=== PATIENT | female | born 1955 | race African-American/Black ===

== ENCOUNTER 2017-08-31 14:42 | Inpatient (IN) | payer MEDICAID, OTHER ==
[~2017-08-31] VITALS: Ht 162.6 cm; Wt 61.2 kg
[2017-08-31] MEDS ORDERED: MORPHINE SULFATE 4 MG/ML CPJ (NOT FOR IM USE) IV ONE (16:15)
[2017-08-31 16:37] LABS: BASOPHILS % 1.1 % (0.0-2.0); EOSINOPHILS % 4.3 % (0.0-5.0); HEMATOCRIT. 45.4 % (36.0-48.0); HEMOGLOBIN. 15.5 g/dL (12.0-16.0); LYMPHOCYTES % 34.3 % (20.0-50.0); MEAN CORPUSCULAR HEMOGLOBIN 30.6 pg (28.0-32.0); MEAN CORPUSCULAR VOLUME 89.7 fL (81.0-99.0); MEAN PLATELET VOLUME 7.2 fl (7.4-10.4); MONOCYTES % 12.3 % (2.0-8.0); PLATELET 336 x1000/uL (130-400); RED BLOOD CELL COUNT 5.06 mill/uL (4.2-5.4); RED CELL DISTRIBUTION WIDTH 13.5 % (11.6-14.6)
[2017-08-31 16:43] LABS: PROTHROMBIN TIME 10.7 sec (9.4-11.6)
[2017-08-31 16:47] LABS: CARBON DIOXIDE 27 mEq/L (21-32); CHLORIDE 103 mEq/L (98-107)
[2017-08-31 16:54] LABS: TROPONIN I < 0.02 ng/mL (0.00-0.04)
[2017-08-31] MEDS ORDERED: ASPIRIN 325MG EC TABLET PO ONE (17:15)
[2017-08-31] MEDS ORDERED: MELO-106 PO (20:07)
[2017-08-31] MEDS ORDERED: TRAM50TA3 PO (20:08)
[2017-08-31] MEDS ORDERED: AMOX500T2 PO (20:13)
[2017-08-31] MEDS ORDERED: NAPR500T PO (20:13)
[2017-08-31] MEDS ORDERED: HYDR12.529 PO (20:13)
[2017-08-31] MEDS ORDERED: TRAZ-129 PO (20:13)
[2017-08-31] MEDS ORDERED: SIMV20TA6 PO (20:13)
[2017-08-31] MEDS ORDERED: TIZA4TAB4 PO ×2 (20:13→21:50)
[2017-08-31] MEDS ORDERED: ONDANSETRON HCL 4MG/2ML VIAL IV PRN (20:15)
[2017-08-31] MEDS ORDERED: ACETAMINOPHEN 325MG TABLET PO PRN (20:15)
[2017-08-31] MEDS ORDERED: ACETAMINOPHEN 650MG SUPP PR PRN (20:15)
[2017-08-31] MEDS ORDERED: DIPHENHYDRAMINE 50MG/ML VIAL IV PRN (20:15)
[2017-08-31] MEDS ORDERED: ACETAMINOPHEN 650MG/20.3ML UDC GT PRN (20:15)
[2017-08-31] MEDS ORDERED: NA PHOS,M-B/NA PHOS,DI-BA ENEMA 118ML PR PRN (20:15)
[2017-08-31] MEDS ORDERED: DOCUSATE SODIUM 100MG CAPSULE PO PRN (20:15)
[2017-08-31] MEDS ORDERED: CLONIDINE 0.1MG TABLET PO PRN (20:15)
[2017-08-31] MEDS ORDERED: GUAIFENESIN 200MG/10ML SUGAR FREE UDC PO PRN (20:15)
[2017-08-31] MEDS ORDERED: MAGNESIUM/ALUMINUM HYDROXIDE/SIMETHICONE 30ML UDC PO PRN (20:15)
[2017-08-31 21:30] VITALS: BP 108/58
[2017-08-31 21:40] VITALS: BP 108/58
[2017-08-31] MEDS ORDERED: MOME13HF2 INH (21:50)
[2017-08-31] MEDS ORDERED: ALBU18HF2 IH (21:50)
[2017-08-31 23:19] LABS: CREATINE KINASE 86 IU/L (26-192); TROPONIN I < 0.02 ng/mL (0.00-0.04)
[2017-09-01] VITALS: BP 110/55
[2017-09-01] MEDS: HYDROCODONE/ACETAMINOPHEN 5/325MG TABLET PO PRN ×2 (03:35→20:05)
[2017-09-01 04:00] VITALS: BP 115/61
[2017-09-01 04:13] LABS: CLARITY URINE CLEAR (CLEAR); COLOR URINE YELLOW (YELLOW); GLUCOSE URINE TRACE (NEGATIVE); KETONES URINE NEGATIVE (NEGATIVE); LEUKOCYTE ESTERASE URINE NEGATIVE (NEGATIVE); NITRITE URINE NEGATIVE (NEGATIVE); OCCULT BLOOD URINE NEGATIVE (NEGATIVE); PROTEIN URINE NEGATIVE (NEGATIVE); SPECIFIC GRAVITY URINE 1.027 (1.005-1.030); UROBILINOGEN URINE 0.2 E.U./dL (0.2-1.0)
[2017-09-01 05:38] LABS: *AMPHETAMINES SCREEN URINE NEGATIVE (NEGATIVE); *BARBITURATES SCREEN URINE NEGATIVE (NEGATIVE); *BENZODIAZEPINES SCREEN URINE NEGATIVE (NEGATIVE); *COCAINE SCREEN URINE NEGATIVE (NEGATIVE); CANNABINOID URINE SCREEN NEGATIVE (NEGATIVE); METHADONE URINE SCREEN NEGATIVE (NEGATIVE); OPIATES URINE SCREEN NEGATIVE (NEGATIVE); PHENCYCLIDINE URINE SCREEN NEGATIVE (NEGATIVE)
[2017-09-01 06:21] LABS: HEMATOCRIT. 39.9 % (36.0-48.0); HEMOGLOBIN. 13.5 g/dL (12.0-16.0); MEAN CORPUSCULAR VOLUME 88.9 fL (81.0-99.0); MEAN PLATELET VOLUME 7.8 fl (7.4-10.4); PLATELET 310 x1000/uL (130-400); RED BLOOD CELL COUNT 4.49 mill/uL (4.2-5.4); RED CELL DISTRIBUTION WIDTH 13.1 % (11.6-14.6)
[2017-09-01 06:58] LABS: CARBON DIOXIDE 29 mEq/L (21-32); CHLORIDE 102 mEq/L (98-107); CREATINE KINASE 80 IU/L (26-192); HDL CHOLESTEROL 73 mg/dL (40-59); LDL CHOLESTEROL 91 mg/dL (5-100); TROPONIN I < 0.02 ng/mL (0.00-0.04)
[2017-09-01 08:00] VITALS: BP 121/65
[2017-09-01] MEDS: ASPIRIN 81MG TABLET PO SCH (10:36)
[2017-09-01 12:00] VITALS: BP 159/64
[2017-09-01 12:57] LABS: T4 FREE 0.8 ng/dL (0.76-1.46)
[2017-09-01 13:18] LABS: PLATELET ESTIMATE NORMAL
[2017-09-01] MEDS ORDERED: REGADENOSON 0.4 MG/5 ML IV NR (14:15)
[2017-09-01 15:26] LABS: CREATINE KINASE 94 IU/L (26-192); CREATINE KINASE MB FRACTION 0.8 ng/mL (0.5-3.6); TROPONIN I < 0.02 ng/mL (0.00-0.04)
[2017-09-01 16:05] VITALS: BP 123/69
[2017-09-01 20:00] VITALS: BP 126/66
[2017-09-01] MEDS: CARVEDILOL 3.125 MG TABLET PO SCH (20:04)
[2017-09-01] MEDS ORDERED: ZOLPIDEM TARTRATE 5MG TABLET PO PRN (20:45)
[2017-09-01] MEDS: IPRATROPIUM/ALBUTEROL 0.5-3(2.5)MG/3ML NEB HHN SCH (21:15)
[2017-09-01 23:49] LABS: CREATINE KINASE 81 IU/L (26-192); TROPONIN I < 0.02 ng/mL (0.00-0.04)
[2017-09-02] VITALS: BP 132/68
[2017-09-02] MEDS: IPRATROPIUM/ALBUTEROL 0.5-3(2.5)MG/3ML NEB HHN SCH ×3 (02:56→12:01)
[2017-09-02 04:00] VITALS: BP 130/63
[2017-09-02 07:45] LABS: CREATINE KINASE 77 IU/L (26-192); CREATINE KINASE MB FRACTION 0.9 ng/mL (0.5-3.6); TROPONIN I < 0.02 ng/mL (0.00-0.04)
[2017-09-02 08:00] VITALS: BP 141/66
[2017-09-02] MEDS: CARVEDILOL 3.125 MG TABLET PO SCH (09:00)
[2017-09-02] MEDS: ASPIRIN 81MG TABLET PO SCH (09:00)
[2017-09-02] MEDS ORDERED: REGADENOSON 0.4 MG/5 ML IV ONE (09:11)
[2017-09-02 13:11] VITALS: BP 128/67
== END 2017-09-02 13:50 | disposition home or self-care (01) | DRG 203 ==
LOC: ER 16:00 → ENRESERV 20:38 → EDBEDREQTM 20:57 → EDBEDREQ 20:57 → 5WST 21:02 → EDBEDREQTM 21:04 → UNDODISIN 09-02 13:50
PROVIDERS: ADMIT Family Medicine; ATTEND Family Medicine
DX: M94.0 Chondrocostal junction syndrome [Tietze] (principal); I10 Essential (primary) hypertension; E78.5 Hyperlipidemia, unspecified; E78.00 Pure hypercholesterolemia, unspecified; J45.909 Unspecified asthma, uncomplicated; Z88.8 Allergy status to other drugs, medicaments and biological substances
CPT/HCPCS: 36415; 71010; 78452; 80053; 80061; 80305; 81001; 82550; 82553; 83036; 83880; 84439; 84443; 84484; 85025; 85379; 85610; 93005; 93017; 93970; 94640; 94664; 99285; A9500; J2785; J7620

== ENCOUNTER 2018-06-18 13:00 | Inpatient (IN) | payer MEDICAID ==
[~2018-06-18] VITALS: Ht 162.6 cm; Wt 61.8 kg
[~2018-06-18 13:00] MED LIST: ABIL10 PO; ALBU18HF2 IH; AMOX500T2 PO; ASPI-1159 PO; HYDR12.529 PO; MELO-106 PO; METH-612 PO; MOME13HF2 INH; NAPR-1176 PO; SIMV20TA6 PO; TIZA4TAB4 PO; TRAM50TA3 PO; TRAZ-129 PO
[2018-06-18] MEDS ORDERED: SODIUM CHLORIDE 0.9% 1,000 ML IV ONE (13:53)
[2018-06-18] MEDS ORDERED: ALBUTEROL (0.083%) 2.5MG/3ML NEB HHN STA (13:53)
[2018-06-18 14:47] LABS: BASOPHILS % 0.9 % (0.0-2.0); HEMATOCRIT. 43.7 % (36.0-48.0); HEMOGLOBIN. 14.5 g/dL (12.0-16.0); LYMPHOCYTES % 34.3 % (20.0-50.0); MEAN CORPUSCULAR HEMOGLOBIN 29.5 pg (28.0-32.0); MEAN CORPUSCULAR VOLUME 88.8 fL (81.0-99.0); MONOCYTES % 9.1 % (2.0-8.0); NEUTROPHILS % 52.7 % (40.0-76.0); PLATELET 364 x1000/uL (130-400); RED BLOOD CELL COUNT 4.93 mill/uL (4.2-5.4); RED CELL DISTRIBUTION WIDTH 13.7 % (11.6-14.6)
[2018-06-18 14:48] LABS: CHLORIDE 106 mEq/L (98-107)
[2018-06-18 14:49] LABS: PROTHROMBIN TIME 10.8 sec (9.4-11.6)
[2018-06-18] MEDS ORDERED: PREDNISONE 20MG TABLET PO STA (15:25)
[2018-06-18] MEDS ORDERED: AZITHROMYCIN 500 MG TABLET PO STA (15:25)
[2018-06-18] MEDS ORDERED: ACETAMINOPHEN 325MG TABLET PO PRN (15:45)
[2018-06-18] MEDS ORDERED: DOCUSATE SODIUM 100MG CAPSULE PO PRN (15:45)
[2018-06-18] MEDS ORDERED: MAGNESIUM/ALUMINUM HYDROXIDE/SIMETHICONE 30ML UDC PO PRN (15:45)
[2018-06-18] MEDS ORDERED: CLONIDINE 0.1MG TABLET PO PRN (15:45)
[2018-06-18] MEDS ORDERED: IPRATROPIUM/ALBUTEROL 0.5-3(2.5)MG/3ML NEB INH PRN (15:45)
[2018-06-18] MEDS ORDERED: NA PHOS,M-B/NA PHOS,DI-BA ENEMA 118ML PR PRN (15:45)
[2018-06-18] MEDS ORDERED: ONDANSETRON HCL 4MG/2ML VIAL IV PRN (15:45)
[2018-06-18 16:33] LABS: LDL CHOLESTEROL 74 mg/dL (5-100)
[2018-06-18 16:35] LABS: CREATINE KINASE 71 IU/L (26-192); CREATINE KINASE MB FRACTION < 0.5 ng/mL (0.5-3.6)
[2018-06-18 16:37] LABS: HDL CHOLESTEROL 69 mg/dL (40-59)
[2018-06-18] MEDS ORDERED: IOHEXOL-350 100 ML BOTTLE ONE (16:39)
[2018-06-18] MEDS ORDERED: POTASSIUM CHLORIDE 20MEQ TABLET SR PO SCH (19:30)
[2018-06-18 20:30] VITALS: BP 142/65
[2018-06-18] MEDS ORDERED: BUDESONIDE 0.5MG/2ML NEB HHN SCH (21:00)
[2018-06-18] MEDS ORDERED: POTASSIUM CHLORIDE 20MEQ/PACKET PO ONE (21:00)
[2018-06-18 21:16] LABS: CLARITY URINE CLEAR (CLEAR); COLOR URINE YELLOW (YELLOW); KETONES URINE TRACE (NEGATIVE); LEUKOCYTE ESTERASE URINE TRACE (NEGATIVE); NITRITE URINE NEGATIVE (NEGATIVE); OCCULT BLOOD URINE NEGATIVE (NEGATIVE); PROTEIN URINE NEGATIVE (NEGATIVE); SPECIFIC GRAVITY URINE 1.023 (1.005-1.030); UROBILINOGEN URINE 0.2 E.U./dL (0.2-1.0)
[2018-06-18 21:30] LABS: *AMPHETAMINES SCREEN URINE NEGATIVE (NEGATIVE); *BARBITURATES SCREEN URINE NEGATIVE (NEGATIVE); *BENZODIAZEPINES SCREEN URINE NEGATIVE (NEGATIVE); *COCAINE SCREEN URINE NEGATIVE (NEGATIVE); METHADONE URINE SCREEN NEGATIVE (NEGATIVE); OPIATES URINE SCREEN NEGATIVE (NEGATIVE); PHENCYCLIDINE URINE SCREEN NEGATIVE (NEGATIVE)
[2018-06-18 21:31] LABS: CANNABINOID URINE SCREEN NEGATIVE (NEGATIVE)
[2018-06-18] MEDS: METHYLPREDNISOLONE SOD SUCC 40 MG/ML VIAL IV SCH (21:39)
[2018-06-18] MEDS ORDERED: MEDICATION NOT ON FORMULARY EA (Trazodone Hcl 1 TAB) PO PRN (22:15)
[2018-06-18] MEDS ORDERED: MEDICATION NOT ON FORMULARY EA (Tramadol Hcl 1 TAB) PO PRN (22:15)
[2018-06-18 22:34] VITALS: BP 142/65
[2018-06-18] MEDS ORDERED: ATORVASTATIN CALCIUM 10MG TABLET PO SCH ×3 (23:06→23:21)
[2018-06-18] MEDS ORDERED: TRAZODONE HCL 50MG TABLET PO PRN (23:15)
[2018-06-18] MEDS ORDERED: TRAMADOL 50MG TABLET PO PRN (23:15)
[2018-06-19 00:12] VITALS: BP 137/66
[2018-06-19] MEDS: IPRATROPIUM/ALBUTEROL 0.5-3(2.5)MG/3ML NEB HHN SCH ×2 (02:04→09:33)
[2018-06-19 04:27] VITALS: BP 123/53
[2018-06-19 08:00] VITALS: BP 122/74
[2018-06-19 08:20] LABS: CHLORIDE 107 mEq/L (98-107)
[2018-06-19 08:39] LABS: BASOPHILS % 0.4 % (0.0-2.0); HEMOGLOBIN. 13.8 g/dL (12.0-16.0); LYMPHOCYTES % 16.8 % (20.0-50.0); MEAN CORPUSCULAR HEMOGLOBIN 29.7 pg (28.0-32.0); MEAN CORPUSCULAR VOLUME 88.1 fL (81.0-99.0); MEAN PLATELET VOLUME 7.4 fl (7.4-10.4); MONOCYTES % 1.3 % (2.0-8.0); NEUTROPHILS % 81.5 % (40.0-76.0); PLATELET 358 x1000/uL (130-400); RED BLOOD CELL COUNT 4.65 mill/uL (4.2-5.4); RED CELL DISTRIBUTION WIDTH 13.6 % (11.6-14.6)
[2018-06-19] MEDS: METHYLPREDNISOLONE SOD SUCC 40 MG/ML VIAL IV SCH (08:50)
[2018-06-19] MEDS ORDERED: ASPIRIN 81MG TABLET PO SCH ×2 (09:00)
[2018-06-19] MEDS ORDERED: HYDROCHLOROTHIAZIDE PO SCH (09:00)
[2018-06-19] MEDS ORDERED: HYDROCHLOROTHIAZIDE 12.5MG CAPSULE PO SCH (09:00)
[2018-06-19 12:00] VITALS: BP 137/49
[2018-06-19] MEDS ORDERED: LORAZEPAM 0.5MG TABLET PO PRN (13:45)
[2018-06-19] MEDS ORDERED: BUDE6.9H INH (14:37)
[2018-06-19] MEDS ORDERED: MED4 MT (14:37)
[2018-06-19 15:28] VITALS: BP 137/49
[2018-06-19] MEDS ORDERED: ARIPIPRAZOLE 10MG TABLET PO SCH (17:00)
[2018-06-19] MEDS ORDERED: MEDICATION NOT ON FORMULARY EA (Simvastatin 1 TAB) PO SCH (17:00)
[2018-06-19] MEDS ORDERED: MEDICATION NOT ON FORMULARY EA (Tizanidine Hcl 1 TAB) PO SCH (17:00)
[2018-06-19] MEDS ORDERED: PREDNISONE 20MG TABLET PO SCH (17:00)
[2018-06-19] MEDS ORDERED: TIZANIDINE HCL 4MG TABLET PO SCH (17:00)
[2018-06-19] MEDS ORDERED: TRAZODONE HCL 50MG TABLET PO SCH (21:00)
== END 2018-06-19 16:10 | disposition home or self-care (01) | DRG 140 ==
LOC: ER 13:00 → EDBEDREQ 13:56 → 5WST 15:36 → EDBEDREQ 15:40 → EDBEDREQTM 15:40 → EDBEDREQ 15:41 → ENRESERV 18:53
PROVIDERS: ADMIT Internal Medicine; ATTEND Internal Medicine
DX: J44.1 Chronic obstructive pulmonary disease with (acute) exacerbation (principal); J96.00 Acute respiratory failure, unspecified whether with hypoxia or hypercapnia; I10 Essential (primary) hypertension; E78.5 Hyperlipidemia, unspecified; E87.6 Hypokalemia; E11.9 Type 2 diabetes mellitus without complications; F99 Mental disorder, not otherwise specified; R91.1 Solitary pulmonary nodule; Z60.2 Problems related to living alone; R91.8 Other nonspecific abnormal finding of lung field; B34.9 Viral infection, unspecified; Z79.51 Long term (current) use of inhaled steroids; Z79.84 Long term (current) use of oral hypoglycemic drugs; Z87.891 Personal history of nicotine dependence; Z79.899 Other long term (current) drug therapy; Z79.82 Long term (current) use of aspirin; Z88.6 Allergy status to analgesic agent
CPT/HCPCS: 36415; 71045; 71275; 80048; 80053; 80061; 80305; 81003; 82550; 82553; 83036; 83735; 83880; 84484; 85025; 85379; 85610; 93005; 94640; 96360; 99285; J2920; J7030; J7512; J7611; J7620; J7626; Q9967

== ENCOUNTER 2018-11-13 00:13 | Emergency (ER) | payer MEDICAID ==
[~2018-11-13] VITALS: Ht 162.6 cm; Wt 61.0 kg
[~2018-11-13 00:13] MED LIST changes: -AMOX500T2 PO; -ASPI-1159 PO; +BUDE6.9H INH; +MED4 MT; -MELO-106 PO; -MOME13HF2 INH; -NAPR-1176 PO; -TRAZ-129 PO; +TRAZ-212 PO
[2018-11-13] MEDS ORDERED: KETOROLAC 60MG/2ML VIAL IM ONE (02:30)
[2018-11-13] MEDS ORDERED: CYCLOBENZAPRINE 10MG TABLET PO ONE (02:30)
[2018-11-13] MEDS ORDERED: TRAMADOL 50MG TABLET PO ONE (04:00)
[2018-11-13 04:18] VITALS: BP 140/65
== END 2018-11-13 04:56 | disposition home or self-care (01) ==
LOC: ER 00:13
DX: M54.5 Low back pain (principal); I10 Essential (primary) hypertension; J44.9 Chronic obstructive pulmonary disease, unspecified; J45.909 Unspecified asthma, uncomplicated; Z98.890 Other specified postprocedural states; Z79.82 Long term (current) use of aspirin; Z79.899 Other long term (current) drug therapy
CPT/HCPCS: 96372; 99283; J1885

== ENCOUNTER 2019-04-20 08:09 | Emergency (ER) | payer MEDICAID ==
[~2019-04-20] VITALS: Ht 162.6 cm; Wt 67.0 kg
[2019-04-20] MEDS ORDERED: KETOROLAC 30MG/ML VIAL IV STA (09:20)
[2019-04-20] MEDS ORDERED: SODIUM CHLORIDE 0.9% 1,000 ML IV ONE (09:20)
[2019-04-20 09:42] LABS: BASOPHILS % 0.6 % (0.0-2.0); EOSINOPHILS % 2.4 % (0.0-5.0); HEMATOCRIT. 40.9 % (36.0-48.0); HEMOGLOBIN. 13.5 g/dL (12.0-16.0); LYMPHOCYTES % 28.4 % (20.0-50.0); MEAN CORPUSCULAR HEMOGLOBIN 30.3 pg (28.0-32.0); MEAN CORPUSCULAR VOLUME 91.6 fL (81.0-99.0); MEAN PLATELET VOLUME 7.2 fl (7.4-10.4); MONOCYTES % 11.8 % (2.0-8.0); NEUTROPHILS % 56.8 % (40.0-76.0); PLATELET 324 x1000/uL (130-400); RED BLOOD CELL COUNT 4.46 mill/uL (4.2-5.4); RED CELL DISTRIBUTION WIDTH 14.4 % (11.6-14.6)
[2019-04-20 09:48] LABS: CHLORIDE 107 mEq/L (98-107)
[2019-04-20 10:51] LABS: CLARITY URINE CLOUDY (CLEAR); COLOR URINE YELLOW (YELLOW); KETONES URINE NEGATIVE (NEGATIVE); LEUKOCYTE ESTERASE URINE NEGATIVE (NEGATIVE); NITRITE URINE NEGATIVE (NEGATIVE); OCCULT BLOOD URINE NEGATIVE (NEGATIVE); PROTEIN URINE NEGATIVE (NEGATIVE); UROBILINOGEN URINE 0.2 E.U./dL (0.2-1.0)
[2019-04-20 11:32] VITALS: BP 149/81
== END 2019-04-20 11:36 | disposition home or self-care (01) ==
LOC: ER 08:36
DX: R10.11 Right upper quadrant pain (principal); M79.18 Myalgia, other site; J44.9 Chronic obstructive pulmonary disease, unspecified; E11.9 Type 2 diabetes mellitus without complications; I10 Essential (primary) hypertension; Z79.82 Long term (current) use of aspirin
CPT/HCPCS: 36415; 80053; 81003; 85025; 96361; 96374; 99283; J1885; J7030

== ENCOUNTER 2020-01-03 16:29 | Emergency (ER) | payer MEDICAID ==
[~2020-01-03] VITALS: Ht 165.1 cm; Wt 63.0 kg
[~2020-01-03 16:29] MED LIST changes: +SIMV-43 PO; -SIMV20TA6 PO; -TIZA4TAB4 PO; +TIZA4TAB5 PO; -TRAZ-212 PO; +TRAZ-251 PO
[2020-01-03 16:42] VITALS: BP 156/80
== END 2020-01-03 18:38 | disposition home or self-care (01) ==
LOC: ER 16:29
DX: G47.00 Insomnia, unspecified (principal); J44.9 Chronic obstructive pulmonary disease, unspecified; E11.9 Type 2 diabetes mellitus without complications; I10 Essential (primary) hypertension; Z88.6 Allergy status to analgesic agent; Z79.899 Other long term (current) drug therapy; Z98.890 Other specified postprocedural states
CPT/HCPCS: 99283

== ENCOUNTER 2020-05-27 09:57 | Inpatient (IN) | payer MEDICAID ==
[~2020-05-27] VITALS: Ht 167.6 cm; Wt 63.5 kg
[2020-05-27] MEDS ORDERED: IPRATROPIUM BROMIDE (0.02%) 0.5MG/2.5ML NEB HHN STA (10:08)
[2020-05-27] MEDS ORDERED: MAGNESIUM 2 G PREMIX 50 ML IV STA (10:08)
[2020-05-27] MEDS ORDERED: METHYLPREDNISOLONE SOD SUCC 125 MG/2 ML VIAL IV STA (10:08)
[2020-05-27] MEDS ORDERED: ALBUTEROL (0.083%) 2.5MG/3ML NEB HHN STA (10:08)
[2020-05-27 11:04] LABS: BASOPHILS % 1.1 % (0.0-2.0); CHLORIDE 102 mEq/L (98-107); HEMATOCRIT. 47.8 % (36.0-48.0); HEMOGLOBIN. 16.2 g/dL (12.0-16.0); LYMPHOCYTES % 34.1 % (20.0-50.0); MEAN CORPUSCULAR HEMOGLOBIN 31.1 pg (28.0-32.0); MEAN PLATELET VOLUME 7.4 fl (7.4-10.4); MONOCYTES % 11.6 % (2.0-8.0); NEUTROPHILS % 48.2 % (40.0-76.0); PLATELET 346 x1000/uL (130-400); RED CELL DISTRIBUTION WIDTH 14.5 % (11.6-14.6)
[2020-05-27] MEDS ORDERED: ONDANSETRON HCL 4MG/2ML INJ IV PRN (13:00)
[2020-05-27] MEDS ORDERED: ACETAMINOPHEN 325MG TABLET PO PRN (13:00)
[2020-05-27 13:20] VITALS: BP 141/73
[2020-05-27 16:00] VITALS: BP 129/50
[2020-05-27 16:24] VITALS: BP 154/77
[2020-05-27] MEDS: ENOXAPARIN 40MG/0.4ML SYR SUBCUT SCH (17:09)
[2020-05-27] MEDS: METHYLPREDNISOLONE SOD SUCC 40 MG/ML VIAL IV SCH ×2 (17:14→21:38)
[2020-05-27] MEDS: BLOOD SUGAR DIAGNOSTIC STRIP TEST SCH ×2 (17:20→21:34)
[2020-05-27] MEDS: IPRATROPIUM/ALBUTEROL 0.5-3(2.5)MG/3ML NEB HHN SCH ×2 (17:25→21:57)
[2020-05-27] MEDS ORDERED: BENZONATATE 100MG CAPSULE PO PRN (17:30)
[2020-05-27] MEDS ORDERED: DEXTROSE 50% WATER 50ML SYRINGE IV PRN (17:30)
[2020-05-27] MEDS ORDERED: DIPHENHYDRAMINE 50MG CAPSULE PO PRN (19:15)
[2020-05-27 20:00] VITALS: BP 134/69
[2020-05-27] MEDS: INSULIN LISPRO 100 UNITS/ML SUBCUT SCH ×2 (20:09→21:00)
[2020-05-27] MEDS ORDERED: TEMAZEPAM 15MG CAPSULE PO SCH (21:00)
[2020-05-27 21:13] LABS: *COCAINE SCREEN URINE NEGATIVE (NEGATIVE); METHADONE URINE SCREEN NEGATIVE (NEGATIVE); OPIATES URINE SCREEN NEGATIVE (NEGATIVE)
[2020-05-27 21:14] LABS: *AMPHETAMINES SCREEN URINE NEGATIVE (NEGATIVE); *BARBITURATES SCREEN URINE NEGATIVE (NEGATIVE); *BENZODIAZEPINES SCREEN URINE NEGATIVE (NEGATIVE); CANNABINOID URINE SCREEN NEGATIVE (NEGATIVE); PHENCYCLIDINE URINE SCREEN NEGATIVE (NEGATIVE)
[2020-05-28] VITALS: BP 129/70
[2020-05-28] MEDS ORDERED: DIPH50CA38 PO (00:02)
[2020-05-28] MEDS ORDERED: TEMA15CA PO (00:02)
[2020-05-28] MEDS: IPRATROPIUM/ALBUTEROL 0.5-3(2.5)MG/3ML NEB HHN SCH ×5 (01:24→16:40)
[2020-05-28 04:00] VITALS: BP 130/69
[2020-05-28] MEDS: METHYLPREDNISOLONE SOD SUCC 40 MG/ML VIAL IV SCH ×2 (06:15→13:18)
[2020-05-28] MEDS: BLOOD SUGAR DIAGNOSTIC STRIP TEST SCH ×3 (06:20→17:20)
[2020-05-28 08:00] VITALS: BP 130/64
[2020-05-28] MEDS: INSULIN LISPRO 100 UNITS/ML SUBCUT SCH ×3 (08:20→17:25)
[2020-05-28 12:00] VITALS: BP 130/61
[2020-05-28 12:58] VITALS: BP_SYST 127; BP_SYST 130; BP_DIAS 61; BP_DIAS 62
[2020-05-28] MEDS: ENOXAPARIN 40MG/0.4ML SYR SUBCUT SCH (13:18)
[2020-05-28] MEDS ORDERED: METF-416 MT (14:03)
[2020-05-28 16:00] VITALS: BP 127/62
== END 2020-05-28 17:30 | disposition home or self-care (01) | DRG 140 ==
LOC: ER 09:57 → 6WST 11:55 → EDBEDREQ 12:05 → ENRESERV 12:41
PROVIDERS: ADMIT Internal Medicine; ATTEND Internal Medicine
DX: J44.1 Chronic obstructive pulmonary disease with (acute) exacerbation (principal); E11.9 Type 2 diabetes mellitus without complications; E78.5 Hyperlipidemia, unspecified; I10 Essential (primary) hypertension
CPT/HCPCS: 36415; 71045; 80053; 80305; 82962; 83036; 83880; 84484; 85025; 93005; 94640; 99291; J1650; J1815; J2920; J2930; J3475; Q0163

== ENCOUNTER 2021-05-04 08:19 | Inpatient (IN) | payer MEDICAID, OTHER ==
[~2021-05-04] VITALS: Ht 162.6 cm; Wt 56.7 kg
[~2021-05-04 08:19] MED LIST changes: +DIPH50CA38 PO; -MED4 MT; +METF-416 MT; -METH-612 PO; +METH-774 PO; +TEMA15CA PO
[2021-05-04] MEDS ORDERED: METHYLPREDNISOLONE SOD SUCC 125 MG/2 ML VIAL IV STA (08:29)
[2021-05-04] MEDS ORDERED: IPRATROPIUM BROMIDE (0.02%) 0.5MG/2.5ML NEB HHN STA (08:29)
[2021-05-04] MEDS ORDERED: ALBUTEROL (0.083%) 2.5MG/3ML NEB HHN STA (08:29)
[2021-05-04 09:03] LABS: BASOPHILS % 1.1 % (0.0-2.0); EOSINOPHILS % 3.4 % (0.0-5.0); HEMATOCRIT. 44.3 % (36.0-48.0); HEMOGLOBIN. 15.5 g/dL (12.0-16.0); MEAN CORPUSCULAR HEMOGLOBIN 31.8 pg (28.0-32.0); MEAN CORPUSCULAR VOLUME 90.9 fL (81.0-99.0); MEAN PLATELET VOLUME 7.3 fl (7.4-10.4); MONOCYTES % 11.5 % (2.0-8.0); PLATELET 359 x1000/uL (130-400); RED BLOOD CELL COUNT 4.88 mill/uL (4.2-5.4); RED CELL DISTRIBUTION WIDTH 13.1 % (11.6-14.6)
[2021-05-04 09:09] LABS: CHLORIDE 96 mEq/L (98-107)
[2021-05-04 12:25] VITALS: BP 140/75
[2021-05-04 12:26] VITALS: BP 140/75
[2021-05-04] MEDS ORDERED: METF-818 PO (12:42)
[2021-05-04] MEDS ORDERED: HYDR12.54 PO (12:42)
[2021-05-04] MEDS ORDERED: DIPH50CA38 MT (12:42)
[2021-05-04] MEDS ORDERED: ASPI-1497 MT (12:42)
[2021-05-04] MEDS ORDERED: SIMV-46 MT (12:42)
[2021-05-04] MEDS ORDERED: ARIP15TA2 MT (12:42)
[2021-05-04] MEDS ORDERED: CLONIDINE 0.1MG TABLET PO PRN (12:45)
[2021-05-04] MEDS ORDERED: LORAZEPAM 0.5MG TABLET PO PRN (12:45)
[2021-05-04] MEDS ORDERED: ONDANSETRON HCL 4MG/2ML INJ IV PRN (12:45)
[2021-05-04] MEDS ORDERED: HYDROCODONE/ACETAMINOPHEN 5/325MG TABLET PO PRN (12:45)
[2021-05-04] MEDS ORDERED: DOCUSATE SODIUM 100MG CAPSULE PO PRN (12:45)
[2021-05-04] MEDS ORDERED: IPRATROPIUM/ALBUTEROL 0.5-3(2.5)MG/3ML NEB HHN PRN (12:45)
[2021-05-04] MEDS ORDERED: MORPHINE SULFATE 2 MG/ML CPJ (NOT FOR IM USE) IV PRN (12:45)
[2021-05-04] MEDS ORDERED: ACETAMINOPHEN 325MG TABLET PO PRN (12:45)
[2021-05-04] MEDS: DILTIAZEM HCL 30MG TABLET PO SCH ×2 (13:24→21:26)
[2021-05-04 15:33] VITALS: BP 128/90
[2021-05-04] MEDS ORDERED: BENZONATATE 100MG CAPSULE PO PRN (16:15)
[2021-05-04] MEDS ORDERED: TEMAZEPAM 15MG CAPSULE PO PRN (16:15)
[2021-05-04] MEDS ORDERED: DIPHENHYDRAMINE 50MG CAPSULE PO PRN (16:15)
[2021-05-04] MEDS ORDERED: DEXTROSE 50% WATER 50ML SYRINGE IV PRN (16:15)
[2021-05-04] MEDS: PREDNISONE 20MG TABLET PO SCH (16:53)
[2021-05-04] MEDS: MONTELUKAST SODIUM 10MG TABLET PO SCH (16:53)
[2021-05-04] MEDS: HYDROCHLOROTHIAZIDE 12.5MG CAPSULE PO SCH (16:53)
[2021-05-04] MEDS: ARIPIPRAZOLE 5MG TABLET PO SCH (16:53)
[2021-05-04] MEDS: METFORMIN HCL 500MG TABLET PO SCH (16:54)
[2021-05-04] MEDS: BLOOD SUGAR DIAGNOSTIC STRIP TEST SCH ×2 (16:54→21:27)
[2021-05-04] MEDS: INSULIN LISPRO 100 UNITS/ML SUBCUT SCH ×2 (17:00→21:25)
[2021-05-04 18:00] VITALS: BP 126/80
[2021-05-04 18:07] LABS: *AMPHETAMINES SCREEN URINE NEGATIVE (NEGATIVE); *BARBITURATES SCREEN URINE NEGATIVE (NEGATIVE); *BENZODIAZEPINES SCREEN URINE NEGATIVE (NEGATIVE); *COCAINE SCREEN URINE NEGATIVE (NEGATIVE); METHADONE URINE SCREEN NEGATIVE (NEGATIVE); OPIATES URINE SCREEN NEGATIVE (NEGATIVE)
[2021-05-04 18:08] LABS: CANNABINOID URINE SCREEN NEGATIVE (NEGATIVE); PHENCYCLIDINE URINE SCREEN NEGATIVE (NEGATIVE)
[2021-05-04 20:00] VITALS: BP 135/72
[2021-05-04] MEDS ORDERED: ATORVASTATIN CALCIUM 40MG TABLET PO SCH (21:00)
[2021-05-04] MEDS: FAMOTIDINE 20MG TABLET PO SCH (21:26)
[2021-05-05] VITALS (7 sets, daily range): BP systolic 116–138; BP diastolic 65–75
[2021-05-05] MEDS: DILTIAZEM HCL 30MG TABLET PO SCH ×2 (05:28→14:00)
[2021-05-05] MEDS: BLOOD SUGAR DIAGNOSTIC STRIP TEST SCH ×3 (06:16→17:22)
[2021-05-05] MEDS: INSULIN LISPRO 100 UNITS/ML SUBCUT SCH ×3 (06:19→17:30)
[2021-05-05 06:34] LABS: BASOPHILS % 0.1 % (0.0-2.0); HEMATOCRIT. 42.3 % (36.0-48.0); HEMOGLOBIN. 14.8 g/dL (12.0-16.0); LYMPHOCYTES % 13.2 % (20.0-50.0); MEAN CORPUSCULAR HEMOGLOBIN 31.5 pg (28.0-32.0); MEAN CORPUSCULAR VOLUME 89.8 fL (81.0-99.0); MEAN PLATELET VOLUME 7.5 fl (7.4-10.4); MONOCYTES % 4.6 % (2.0-8.0); NEUTROPHILS % 82.1 % (40.0-76.0); PLATELET 363 x1000/uL (130-400); RED BLOOD CELL COUNT 4.71 mill/uL (4.2-5.4); RED CELL DISTRIBUTION WIDTH 13.2 % (11.6-14.6)
[2021-05-05 06:37] LABS: CHLORIDE 96 mEq/L (98-107)
[2021-05-05 06:46] LABS: LDL CHOLESTEROL 217 mg/dL (5-100)
[2021-05-05 06:49] LABS: HDL CHOLESTEROL 100 mg/dL (40-59)
[2021-05-05] MEDS: ARIPIPRAZOLE 5MG TABLET PO SCH (08:24)
[2021-05-05] MEDS: PREDNISONE 20MG TABLET PO SCH ×2 (08:24→17:02)
[2021-05-05] MEDS: METFORMIN HCL 500MG TABLET PO SCH ×2 (08:24→17:02)
[2021-05-05] MEDS: HYDROCHLOROTHIAZIDE 12.5MG CAPSULE PO SCH (08:25)
[2021-05-05] MEDS: FAMOTIDINE 20MG TABLET PO SCH (08:25)
[2021-05-05] MEDS ORDERED: ASPIRIN 81MG EC TABLET PO SCH (09:00)
[2021-05-05] MEDS ORDERED: POLYETHYLENE GLYCOL 3350 (17GM) 1 DOSE PACK PO SCH (10:30)
[2021-05-05] MEDS ORDERED: FAMO20TA8 PO (12:13)
[2021-05-05] MEDS ORDERED: MOME13HF2 INH (12:13)
[2021-05-05] MEDS ORDERED: CARSR90 MT (12:13)
[2021-05-05] MEDS ORDERED: ALBU18HF2 IH (12:13)
[2021-05-05] MEDS ORDERED: P20 PO (12:13)
[2021-05-05] MEDS ORDERED: MONT10TA21 PO (12:13)
[2021-05-05] MEDS ORDERED: BENZ100C86 PO (12:13)
[2021-05-05] MEDS: MONTELUKAST SODIUM 10MG TABLET PO SCH (17:02)
== END 2021-05-05 20:19 | disposition home or self-care (01) | DRG 140 ==
LOC: ER 08:19 → 8WST 10:35 → EDBEDREQ 10:36 → ENRESERV 11:26
PROVIDERS: ADMIT Internal Medicine; ATTEND Internal Medicine
DX: J44.1 Chronic obstructive pulmonary disease with (acute) exacerbation (principal); J96.00 Acute respiratory failure, unspecified whether with hypoxia or hypercapnia; I27.20 Pulmonary hypertension, unspecified; I10 Essential (primary) hypertension; E11.9 Type 2 diabetes mellitus without complications; E78.5 Hyperlipidemia, unspecified; G47.00 Insomnia, unspecified; E87.6 Hypokalemia; R74.01 Elevation of levels of liver transaminase levels; F99 Mental disorder, not otherwise specified; Z79.82 Long term (current) use of aspirin; Z88.6 Allergy status to analgesic agent; Z79.84 Long term (current) use of oral hypoglycemic drugs; Z79.899 Other long term (current) drug therapy; Z87.891 Personal history of nicotine dependence; Z79.51 Long term (current) use of inhaled steroids
CPT/HCPCS: 36415; 71045; 80048; 80053; 80061; 80305; 82962; 83036; 83880; 84443; 84484; 85025; 85379; 93005; 93306; 94640; 99285; J1815; J2930; J7512

== ENCOUNTER 2021-07-12 18:30 | Emergency (ER) | payer MEDICAID, OTHER ==
[~2021-07-12] VITALS: Ht 162.6 cm; Wt 58.0 kg
[~2021-07-12 18:30] MED LIST changes: -ABIL10 PO; +ARIP15TA2 MT; +ASPI-1497 MT; +BENZ100C86 PO; -BUDE6.9H INH; +CARSR90 MT; +DIPH50CA38 MT; -DIPH50CA38 PO; +FAMO20TA8 PO; -HYDR12.529 PO; +HYDR12.54 PO; -METF-416 MT; +METF-818 PO; -METH-774 PO; +MOME13HF2 INH; +MONT10TA21 PO; +P20 PO; -SIMV-43 PO; +SIMV-46 MT; -TIZA4TAB5 PO; -TRAM50TA3 PO; -TRAZ-251 PO
[2021-07-12] MEDS ORDERED: IPRATROPIUM BROMIDE (0.02%) 0.5MG/2.5ML NEB HHN STA (20:25)
[2021-07-12] MEDS ORDERED: METHYLPREDNISOLONE SOD SUCC 125 MG/2 ML VIAL IV STA (20:25)
[2021-07-12 21:02] LABS: BASOPHILS % 1.3 % (0.0-2.0); HEMATOCRIT. 40.8 % (36.0-48.0); HEMOGLOBIN. 13.8 g/dL (12.0-16.0); LYMPHOCYTES % 45.8 % (20.0-50.0); MEAN CORPUSCULAR VOLUME 91.8 fL (81.0-99.0); MEAN PLATELET VOLUME 6.8 fl (7.4-10.4); NEUTROPHILS % 33.9 % (40.0-76.0); PLATELET 367 x1000/uL (130-400); RED BLOOD CELL COUNT 4.45 mill/uL (4.2-5.4); RED CELL DISTRIBUTION WIDTH 13.4 % (11.6-14.6)
[2021-07-12] MEDS: ALBUTEROL (0.083%) 2.5MG/3ML NEB HHN SCH ×3 (21:04→22:18)
[2021-07-12 21:09] LABS: CHLORIDE 107 mEq/L (98-107)
[2021-07-12 21:12] LABS: INR 1.1; PROTHROMBIN TIME 11.3 sec (9.6-11.0)
[2021-07-12 21:14] LABS: ETHANOL BLOOD 25 mg/dL
[2021-07-12 21:16] LABS: C REACTIVE PROTEIN QUANT 2.9 mg/L (0.0-3.0)
[2021-07-12 21:18] LABS: CREATINE KINASE 68 IU/L (26-192)
[2021-07-12 23:43] LABS: CLARITY URINE CLEAR (CLEAR); COLOR URINE YELLOW (YELLOW); KETONES URINE NEGATIVE (NEGATIVE); LEUKOCYTE ESTERASE URINE NEGATIVE (NEGATIVE); NITRITE URINE NEGATIVE (NEGATIVE); OCCULT BLOOD URINE NEGATIVE (NEGATIVE); PROTEIN URINE NEGATIVE (NEGATIVE); SPECIFIC GRAVITY URINE 1.011 (1.005-1.030); UROBILINOGEN URINE 0.2 E.U./dL (0.2-1.0)
[2021-07-12 23:52] LABS: *AMPHETAMINES SCREEN URINE NEGATIVE (NEGATIVE); *BARBITURATES SCREEN URINE NEGATIVE (NEGATIVE)
[2021-07-12 23:53] LABS: *BENZODIAZEPINES SCREEN URINE NEGATIVE (NEGATIVE); *COCAINE SCREEN URINE NEGATIVE (NEGATIVE); CANNABINOID URINE SCREEN NEGATIVE (NEGATIVE); METHADONE URINE SCREEN NEGATIVE (NEGATIVE); OPIATES URINE SCREEN NEGATIVE (NEGATIVE); PHENCYCLIDINE URINE SCREEN NEGATIVE (NEGATIVE)
[2021-07-13] MEDS ORDERED: ALBU6.7H9 INH (01:14)
[2021-07-13] MEDS ORDERED: ALBU4TAB6 MT (01:14)
[2021-07-13] MEDS ORDERED: P20 MT (01:14)
[2021-07-13 01:32] VITALS: BP 138/66
== END 2021-07-13 01:37 | disposition home or self-care (01) ==
LOC: ER 18:30
DX: J44.1 Chronic obstructive pulmonary disease with (acute) exacerbation (principal); E87.2 Acidosis; I10 Essential (primary) hypertension; E11.9 Type 2 diabetes mellitus without complications; Z20.822 Contact with and (suspected) exposure to COVID-19; Z98.890 Other specified postprocedural states; Z87.891 Personal history of nicotine dependence; Z88.6 Allergy status to analgesic agent
CPT/HCPCS: 36415; 71045; 80053; 80305; 80320; 81003; 82550; 82728; 83605; 83615; 83690; 83880; 84145; 84484; 85025; 85384; 85610; 86140; 87040; 87086; 93005; 94640; 96374; 99285; C9803; J2930; U0003; U0005; Z7610; G0480

== ENCOUNTER 2022-05-17 19:45 | Inpatient (IN) | payer MEDICARE, OTHER ==
[~2022-05-17] VITALS: Ht 162.6 cm; Wt 57.9 kg
[~2022-05-17 19:45] MED LIST changes: +ALBU4TAB6 MT; +ALBU6.7H9 INH; +P20 MT
[2022-05-17] MEDS ORDERED: ACETAMINOPHEN 325MG TABLET PO STA (20:13)
[2022-05-17 21:03] LABS: HEMATOCRIT. 42.1 % (36.0-48.0); MEAN CORPUSCULAR HEMOGLOBIN 32.3 pg (28.0-32.0); MEAN CORPUSCULAR VOLUME 97.4 fL (81.0-99.0); MEAN PLATELET VOLUME 7.2 fl (7.4-10.4); PLATELET 334 x1000/uL (130-400); RED BLOOD CELL COUNT 4.32 mill/uL (4.2-5.4); RED CELL DISTRIBUTION WIDTH 14.9 % (11.6-14.6)
[2022-05-17 21:08] LABS: CLARITY URINE CLOUDY (CLEAR); COLOR URINE YELLOW (YELLOW); KETONES URINE TRACE (NEGATIVE); LEUKOCYTE ESTERASE URINE NEGATIVE (NEGATIVE); NITRITE URINE NEGATIVE (NEGATIVE); OCCULT BLOOD URINE TRACE (NEGATIVE); PROTEIN URINE NEGATIVE (NEGATIVE); SPECIFIC GRAVITY URINE 1.022 (1.005-1.030); UROBILINOGEN URINE 0.2 E.U./dL (0.2-1.0)
[2022-05-17 21:12] LABS: CHLORIDE 102 mEq/L (98-107)
[2022-05-17 21:21] LABS: *AMPHETAMINES SCREEN URINE NEGATIVE (NEGATIVE); *BARBITURATES SCREEN URINE NEGATIVE (NEGATIVE); *BENZODIAZEPINES SCREEN URINE NEGATIVE (NEGATIVE); *COCAINE SCREEN URINE NEGATIVE (NEGATIVE); CANNABINOID URINE SCREEN NEGATIVE (NEGATIVE); METHADONE URINE SCREEN NEGATIVE (NEGATIVE); OPIATES URINE SCREEN NEGATIVE (NEGATIVE); PHENCYCLIDINE URINE SCREEN NEGATIVE (NEGATIVE)
[2022-05-17 21:23] LABS: ETHANOL BLOOD 101 mg/dL
[2022-05-17 21:25] LABS: PLATELET ESTIMATE NORMAL
[2022-05-17] MEDS ORDERED: ENOXAPARIN 60MG/0.6ML SYR SUBCUT ONE (22:00)
[2022-05-18] VITALS (7 sets, daily range): BP systolic 121–156; BP diastolic 69–81
[2022-05-18] MEDS ORDERED: *PATIENT'S OWN MEDICATION STORAGE XX SCH (05:00)
[2022-05-18] MEDS ORDERED: PNEUMOCOCCAL 23-VAL P-SAC VAC 0.5 ML IM ONE (05:45)
[2022-05-18] MEDS ORDERED: ZOLPIDEM TARTRATE 5MG TABLET PO PRN (05:45)
[2022-05-18] MEDS ORDERED: BUDESONIDE 0.5MG/2ML NEB HHN SCH (06:00)
[2022-05-18] MEDS ORDERED: CLONIDINE 0.1MG TABLET PO SCH (06:00)
[2022-05-18] MEDS: METHYLPREDNISOLONE SOD SUCC 40 MG/ML VIAL IV SCH ×2 (06:26→14:21)
[2022-05-18] MEDS ORDERED: CLONIDINE 0.1MG TABLET PO PRN (06:30)
[2022-05-18] MEDS ORDERED: IPRATROPIUM/ALBUTEROL 0.5-3(2.5)MG/3ML NEB HHN SCH (08:00)
[2022-05-18 08:19] LABS: BASOPHILS % 1.1 % (0.0-2.0); CHLORIDE 101 mEq/L (98-107); EOSINOPHILS % 2.4 % (0.0-5.0); HEMATOCRIT. 39.8 % (36.0-48.0); HEMOGLOBIN. 13.2 g/dL (12.0-16.0); LYMPHOCYTES % 33.1 % (20.0-50.0); MEAN CORPUSCULAR HEMOGLOBIN 32.3 pg (28.0-32.0); MEAN CORPUSCULAR VOLUME 97.3 fL (81.0-99.0); MEAN PLATELET VOLUME 7.2 fl (7.4-10.4); MONOCYTES % 12.4 % (2.0-8.0); PLATELET 308 x1000/uL (130-400)
[2022-05-18] MEDS ORDERED: ENOXAPARIN 40MG/0.4ML SYR SUBCUT SCH (09:00)
[2022-05-18] MEDS ORDERED: AMLODIPINE 10MG TABLET PO SCH (09:00)
[2022-05-18] MEDS ORDERED: LEVOFLOXACIN 500MG PREMIX 100 ML IV SCH (10:00)
[2022-05-18] MEDS ORDERED: P20 MT (14:17)
[2022-05-18] MEDS ORDERED: FAMOTIDINE 20MG TABLET PO SCH (21:00)
== END 2022-05-18 17:15 | disposition home or self-care (01) | DRG 203 ==
LOC: ER 19:45 → MICUSO 23:06 → EDBEDREQSVC 23:28 → EDBEDREQ 23:28 → EDBEDREQTM 23:28 → 8WST 05-18 02:07
PROVIDERS: ADMIT Internal Medicine; ATTEND Internal Medicine
DX: M94.0 Chondrocostal junction syndrome [Tietze] (principal); J44.1 Chronic obstructive pulmonary disease with (acute) exacerbation; E11.9 Type 2 diabetes mellitus without complications; F10.129 Alcohol abuse with intoxication, unspecified; I10 Essential (primary) hypertension; J44.9 Chronic obstructive pulmonary disease, unspecified; Z88.6 Allergy status to analgesic agent; Z80.9 Family history of malignant neoplasm, unspecified; Z82.49 Family history of ischemic heart disease and other diseases of the circulatory system; Z87.891 Personal history of nicotine dependence; Z79.899 Other long term (current) drug therapy; Z79.82 Long term (current) use of aspirin; Z98.891 History of uterine scar from previous surgery
CPT/HCPCS: 36415; 71045; 80048; 80053; 80305; 80320; 81003; 83605; 83880; 84145; 84484; 85025; 93005; 99285; J1650; J1956; J2920; G0480

== ENCOUNTER 2022-11-17 21:53 | Emergency (ER) | payer MEDICARE, MEDICAID ==
[~2022-11-17] VITALS: Ht 170.2 cm; Wt 65.0 kg
[~2022-11-17 21:53] MED LIST changes: -ALBU6.7H9 INH; -P20 PO
[2022-11-17 23:29] LABS: BASOPHILS % 1.4 % (0.0-2.0); EOSINOPHILS % 0.5 % (0.0-5.0); HEMATOCRIT. 41.3 % (36.0-48.0); LYMPHOCYTES % 26.9 % (20.0-50.0); MEAN CORPUSCULAR HEMOGLOBIN 34.9 pg (28.0-32.0); MEAN CORPUSCULAR VOLUME 102.6 fL (81.0-99.0); MEAN PLATELET VOLUME 6.8 fl (7.4-10.4); MONOCYTES % 11.3 % (2.0-8.0); NEUTROPHILS % 59.9 % (40.0-76.0); PLATELET 325 x1000/uL (130-400); RED BLOOD CELL COUNT 4.02 mill/uL (4.2-5.4); RED CELL DISTRIBUTION WIDTH 15.3 % (11.6-14.6)
[2022-11-17 23:30] LABS: CHLORIDE 93 mEq/L (98-107)
[2022-11-17 23:32] LABS: PARTIAL THROMBOPLASTIN TIME 24.9 sec (23.4-31.0); PROTHROMBIN TIME 10.8 sec (9.6-11.0)
[2022-11-17 23:42] LABS: ETHANOL BLOOD < 10 mg/dL
[2022-11-18 01:02] VITALS: BP 113/63
[2022-11-18 01:21] LABS: CLARITY URINE CLEAR (CLEAR); COLOR URINE YELLOW (YELLOW); KETONES URINE 2+ (NEGATIVE); LEUKOCYTE ESTERASE URINE NEGATIVE (NEGATIVE); NITRITE URINE NEGATIVE (NEGATIVE); OCCULT BLOOD URINE NEGATIVE (NEGATIVE); PROTEIN URINE NEGATIVE (NEGATIVE); SPECIFIC GRAVITY URINE 1.039 (1.005-1.030); UROBILINOGEN URINE 0.2 E.U./dL (0.2-1.0)
[2022-11-18 01:41] LABS: *AMPHETAMINES SCREEN URINE NEGATIVE (NEGATIVE); *BARBITURATES SCREEN URINE NEGATIVE (NEGATIVE); *BENZODIAZEPINES SCREEN URINE NEGATIVE (NEGATIVE); *COCAINE SCREEN URINE NEGATIVE (NEGATIVE); CANNABINOID URINE SCREEN NEGATIVE (NEGATIVE); METHADONE URINE SCREEN NEGATIVE (NEGATIVE); OPIATES URINE SCREEN NEGATIVE (NEGATIVE); PHENCYCLIDINE URINE SCREEN NEGATIVE (NEGATIVE)
[2022-11-18] MEDS ORDERED: IOHEXOL-350 100 ML BOTTLE ONE (04:41)
== END 2022-11-18 02:26 | disposition home or self-care (01) ==
LOC: ER 21:53
DX: R42 Dizziness and giddiness (principal); J44.9 Chronic obstructive pulmonary disease, unspecified; I10 Essential (primary) hypertension; E11.9 Type 2 diabetes mellitus without complications; Z87.891 Personal history of nicotine dependence; Z79.899 Other long term (current) drug therapy
CPT/HCPCS: 36415; 70450; 70496; 70498; 71045; 80053; 80305; 80320; 81003; 83880; 84484; 85025; 85610; 85730; 93005; 99285; Q9967; G0480

== ENCOUNTER 2023-03-16 08:46 | Emergency (ER) | payer MEDICARE, MEDICAID ==
[~2023-03-16] VITALS: Ht 162.6 cm; Wt 50.0 kg
[~2023-03-16 08:46] MED LIST changes: +MOME13HF12 INH; -MOME13HF2 INH; +MONT-46 PO; -MONT10TA21 PO
[2023-03-16 09:38] LABS: CLARITY URINE CLOUDY (CLEAR); COLOR URINE YELLOW (YELLOW); KETONES URINE NEGATIVE (NEGATIVE); LEUKOCYTE ESTERASE URINE NEGATIVE (NEGATIVE); NITRITE URINE NEGATIVE (NEGATIVE); OCCULT BLOOD URINE NEGATIVE (NEGATIVE); PH URINE 8.5 (4.5-8.0); PROTEIN URINE TRACE (NEGATIVE); SPECIFIC GRAVITY URINE 1.014 (1.005-1.030); UROBILINOGEN URINE 0.2 E.U./dL (0.2-1.0)
[2023-03-16 09:44] LABS: HEMATOCRIT 41.9 % (36.0-48.0); HEMOGLOBIN 14.4 g/dL (12.0-16.0); MEAN CORPUSCULAR VOLUME 98.9 fL (81.0-99.0); PLATELET 369 x1000/uL (130-400); RED BLOOD CELL COUNT 4.23 mill/uL (4.2-5.4); RED CELL DISTRIBUTION WIDTH 13.9 % (11.6-14.6)
[2023-03-16 09:49] LABS: CHLORIDE 98 mEq/L (98-107)
[2023-03-16 11:16] LABS: D-DIMER 0.31 mg/L FEU (<0.50); PARTIAL THROMBOPLASTIN TIME 24.5 sec (23.4-31.0); PROTHROMBIN TIME 10.5 sec (9.6-11.0)
[2023-03-16] MEDS ORDERED: ASPIRIN 81MG TABLET PO ONE (11:30)
[2023-03-16] MEDS ORDERED: P50 MT (12:08)
[2023-03-16] MEDS ORDERED: METH-653 MT (12:08)
[2023-03-16 12:30] VITALS: BP 130/62
== END 2023-03-16 12:31 | disposition home or self-care (01) ==
LOC: ER 09:01
DX: S29.011A Strain of muscle and tendon of front wall of thorax, initial encounter (principal); J45.909 Unspecified asthma, uncomplicated; E11.9 Type 2 diabetes mellitus without complications; I10 Essential (primary) hypertension; Z79.84 Long term (current) use of oral hypoglycemic drugs; Z88.6 Allergy status to analgesic agent; Z79.82 Long term (current) use of aspirin; X58.XXXA Exposure to other specified factors, initial encounter; Y93.89 Activity, other specified; Y92.89 Other specified places as the place of occurrence of the external cause; Y99.8 Other external cause status
CPT/HCPCS: 36415; 71045; 80053; 81003; 83880; 84484; 85027; 85379; 93005; 99285

== ENCOUNTER 2023-04-07 21:53 | Emergency (ER) | payer MEDICARE, OTHER ==
[~2023-04-07] VITALS: Ht 162.6 cm; Wt 47.0 kg
[~2023-04-07 21:53] MED LIST changes: +METH-653 MT; +P50 MT
[2023-04-07] MEDS ORDERED: METHYLPREDNISOLONE SOD SUCC 125 MG/2 ML VIAL IV STA (22:19)
[2023-04-07] MEDS ORDERED: IPRATROPIUM BROMIDE (0.02%) 0.5MG/2.5ML NEB HHN STA (22:19)
[2023-04-07] MEDS ORDERED: ALBUTEROL (0.083%) 2.5MG/3ML NEB HHN STA (22:19)
[2023-04-07 23:50] LABS: HEMATOCRIT. 39.3 % (36.0-48.0); HEMOGLOBIN. 13.3 g/dL (12.0-16.0); LYMPHOCYTES % 30.1 % (20.0-50.0); MEAN CORPUSCULAR VOLUME 97.7 fL (81.0-99.0); MEAN PLATELET VOLUME 6.9 fl (7.4-10.4); MONOCYTES % 8.5 % (2.0-8.0); NEUTROPHILS % 59.4 % (40.0-76.0); PLATELET 335 x1000/uL (130-400); RED BLOOD CELL COUNT 4.03 mill/uL (4.2-5.4); RED CELL DISTRIBUTION WIDTH 13.8 % (11.6-14.6)
[2023-04-08 00:02] LABS: CHLORIDE 97 mEq/L (98-107)
[2023-04-08] MEDS ORDERED: ALBUTEROL (0.083%) 2.5MG/3ML NEB HHN NR (01:30)
[2023-04-08] MEDS ORDERED: IPRATROPIUM BROMIDE (0.02%) 0.5MG/2.5ML NEB HHN NR (01:30)
[2023-04-08] MEDS ORDERED: METHYLPREDNISOLONE SOD SUCC 125 MG/2 ML VIAL IV NR (01:30)
[2023-04-08] MEDS ORDERED: P50 MT (02:10)
[2023-04-08] MEDS ORDERED: ALBU6.7H3 INH (02:10)
[2023-04-08 02:23] VITALS: BP 152/86
== END 2023-04-08 02:24 | disposition home or self-care (01) ==
LOC: ER 21:53
DX: J44.1 Chronic obstructive pulmonary disease with (acute) exacerbation (principal); E11.9 Type 2 diabetes mellitus without complications; I10 Essential (primary) hypertension; Z79.899 Other long term (current) drug therapy
CPT/HCPCS: 36415; 71045; 80053; 83880; 84484; 85025; 93005; 94640; 96374; 99285; J2930

== ENCOUNTER 2023-04-22 16:30 | Emergency (ER) | payer MEDICARE, OTHER ==
[~2023-04-22] VITALS: Ht 162.6 cm; Wt 46.0 kg
[~2023-04-22 16:30] MED LIST changes: +ALBU6.7H3 INH
[2023-04-22] MEDS ORDERED: MORPHINE SULFATE 2 MG/ML CPJ (NOT FOR IM USE) IV ONE (17:30)
[2023-04-22] MEDS ORDERED: ONDANSETRON HCL 4MG/2ML INJ IV ONE (17:30)
[2023-04-22 17:56] LABS: BASOPHILS % 0.5 % (0.0-2.0); EOSINOPHILS % 0.5 % (0.0-5.0); HEMOGLOBIN. 13.6 g/dL (12.0-16.0); LYMPHOCYTES % 31.7 % (20.0-50.0); MEAN CORPUSCULAR HEMOGLOBIN 33.8 pg (28.0-32.0); MEAN CORPUSCULAR VOLUME 99.1 fL (81.0-99.0); MEAN PLATELET VOLUME 6.5 fl (7.4-10.4); MONOCYTES % 13.3 % (2.0-8.0); PLATELET 328 x1000/uL (130-400); RED BLOOD CELL COUNT 4.03 mill/uL (4.2-5.4); RED CELL DISTRIBUTION WIDTH 14.1 % (11.6-14.6)
[2023-04-22 18:04] LABS: CHLORIDE 97 mEq/L (98-107)
[2023-04-22 18:06] LABS: PARTIAL THROMBOPLASTIN TIME 22.6 sec (23.4-31.0); PROTHROMBIN TIME 10.8 sec (9.6-11.0)
[2023-04-22] MEDS ORDERED: POTASSIUM CHLORIDE 20MEQ TABLET SR PO ONE (19:00)
[2023-04-22 20:00] VITALS: BP 148/70
[2023-04-22] MEDS ORDERED: TOPUD MT (20:24)
[2023-04-22] MEDS ORDERED: ASPI-1079 PO (20:24)
[2023-04-22] MEDS ORDERED: NITR0.4T49 SL (20:24)
== END 2023-04-22 21:37 | disposition home or self-care (01) ==
LOC: ER 16:30
DX: R07.89 Other chest pain (principal); J44.9 Chronic obstructive pulmonary disease, unspecified; E11.9 Type 2 diabetes mellitus without complications; I10 Essential (primary) hypertension; Z79.84 Long term (current) use of oral hypoglycemic drugs; Z79.82 Long term (current) use of aspirin
CPT/HCPCS: 36415; 71045; 80053; 83880; 84484; 85025; 85610; 85730; 93005; 96374; 96375; 99285; J2270; J2405; Z7610

== ENCOUNTER → 2023-08-19 | Day surgery (SDC) | payer MEDICARE, OTHER ==
[~2023-08-19] MED LIST changes: +AMLO10TA80 PO; +ASPI-1079 PO; +ATOR40TA70 PO; +BUPIVACAINE HCL/PF 0.5% (5MG/ML) 10ML ONE; +DIPH50CA38 PO; +FOLI-43 PO; +HYDR25TA PO; +LEVO50TA8 PO; +LIDOCAINE HCL 1% 10 MG/ML 10ML VIAL ONE; +MOME13HF11 IH; +NITR0.4T49 SL; +QUET25TA36 PO; +SENN-257 PO; +SKIN ADHESIVE 0.7 GM EA TOP ONE; +SODIUM BICARBONATE 4% (2.4MEQ) 5ML VIAL IV ONE; +TOPUD MT
== END | disposition home or self-care (01) ==
LOC: RAD 09:25
PROVIDERS: ATTEND Surgery
DX: N63.11 Unspecified lump in the right breast, upper outer quadrant (principal); Z79.82 Long term (current) use of aspirin; Z79.84 Long term (current) use of oral hypoglycemic drugs; Z79.899 Other long term (current) drug therapy; Z98.890 Other specified postprocedural states; Z88.8 Allergy status to other drugs, medicaments and biological substances; Z83.3 Family history of diabetes mellitus
CPT/HCPCS: 19285; A4648; J3490 ×2; Z7610 ×3

== ENCOUNTER → 2023-08-21 | Day surgery (SDC) | payer MEDICARE, MEDICAID ==
[~2023-08-21] VITALS: Ht 162.6 cm; Wt 44.5 kg
[~2023-08-21] MED LIST changes: -ALBU4TAB6 MT; -ALBU6.7H3 INH; -ARIP15TA2 MT; -ASPI-1079 PO; -BUPIVACAINE HCL/PF 0.5% (5MG/ML) 10ML ONE; -CARSR90 MT; +CEFAZOLIN SODIUM 1000MG/VIAL ONE; +DEXAMETHASONE 4MG/ML 1ML VIAL ONE; -DIPH50CA38 MT; -FAMO20TA8 PO; +FENTANYL CITRATE/PF 50MCG/ML 2ML VIAL ONE; -HYDR12.54 PO; +HYDROCODONE/ACETAMINOPHEN 5/325MG TABLET PO PRN; +INDOCYANINE GREEN 25 MG VIAL IV ONE; -LIDOCAINE HCL 1% 10 MG/ML 10ML VIAL ONE; +LIDOCAINE HCL 1% 20ML VIAL (Pyxis) INJ ONE; -METH-653 MT; +METHYLENE BLUE 50 MG/10 ML AMP IV ONE; +METOCLOPRAMIDE HCL 10MG/2ML VIAL ONE; -MOME13HF12 INH; -MONT-46 PO; +ONDANSETRON HCL 4MG/2ML INJ ONE; -P20 MT; -P50 MT; +PROPOFOL 200MG/20ML VIAL IV ONE; -SENN-257 PO; -SIMV-46 MT; -SODIUM BICARBONATE 4% (2.4MEQ) 5ML VIAL IV ONE; +SODIUM CHLORIDE 0.9% 1,000 ML IV SCH; -TEMA15CA PO
[2023-08-21] MEDS: FENTANYL CITRATE/PF 50MCG/ML 2ML VIAL IV PRN ×2 (13:36→13:47)
[2023-08-21 14:05] VITALS: BP 134/71; PULSE 86; RESP 29
== END | disposition home or self-care (01) ==
LOC: OR 06:05
PROVIDERS: ATTEND Surgery
DX: C50.911 Malignant neoplasm of unspecified site of right female breast (principal); I10 Essential (primary) hypertension; E11.9 Type 2 diabetes mellitus without complications; J45.909 Unspecified asthma, uncomplicated; Z79.899 Other long term (current) drug therapy; Z79.84 Long term (current) use of oral hypoglycemic drugs; Z98.890 Other specified postprocedural states; Z79.82 Long term (current) use of aspirin; Z88.8 Allergy status to other drugs, medicaments and biological substances; Z83.3 Family history of diabetes mellitus
CPT/HCPCS: 82962; 88331; 88305; 88307; 76098; 78195; 19301; 38525; J3010; A9541; Q9957; J0690; J1100; J3490; Q9968; J2765; J2405; J2704; A4217; Z7610 ×18

== ENCOUNTER 2023-08-28 10:16 | Emergency (ER) | payer MEDICARE, MEDICAID ==
[~2023-08-28] VITALS: Ht 167.6 cm; Wt 59.0 kg
[~2023-08-28 10:16] MED LIST changes: -CEFAZOLIN SODIUM 1000MG/VIAL ONE; -DEXAMETHASONE 4MG/ML 1ML VIAL ONE; -FENTANYL CITRATE/PF 50MCG/ML 2ML VIAL ONE; -HYDROCODONE/ACETAMINOPHEN 5/325MG TABLET PO PRN; -INDOCYANINE GREEN 25 MG VIAL IV ONE; -LIDOCAINE HCL 1% 20ML VIAL (Pyxis) INJ ONE; -METHYLENE BLUE 50 MG/10 ML AMP IV ONE; -METOCLOPRAMIDE HCL 10MG/2ML VIAL ONE; -ONDANSETRON HCL 4MG/2ML INJ ONE; -PROPOFOL 200MG/20ML VIAL IV ONE; -SKIN ADHESIVE 0.7 GM EA TOP ONE; -SODIUM CHLORIDE 0.9% 1,000 ML IV SCH
[2023-08-28 10:18] VITALS: TEMP 98; O2SAT 98
[2023-08-28] MEDS ORDERED: HYDROCODONE/ACETAMINOPHEN 5/325MG TABLET PO SCH (10:30)
[2023-08-28 10:51] LABS: BASOPHILS % 0.9 % (0.0-2.0); EOSINOPHILS % 0.6 % (0.0-5.0); HEMATOCRIT. 39.2 % (36.0-48.0); LYMPHOCYTES % 14.8 % (20.0-50.0); MEAN CORPUSCULAR HEMOGLOBIN 31.6 pg (28.0-32.0); MEAN CORPUSCULAR VOLUME 95.7 fL (81.0-99.0); MEAN PLATELET VOLUME 6.1 fl (7.4-10.4); MONOCYTES % 8.9 % (2.0-8.0); NEUTROPHILS % 74.8 % (40.0-76.0); PLATELET 495 x1000/uL (130-400); RED CELL DISTRIBUTION WIDTH 13.9 % (11.6-14.6); WHITE BLOOD COUNT 7.7 x1000/uL (4.5-11.0)
[2023-08-28 11:00] LABS: CHLORIDE 101 mEq/L (98-107); INDEX HEMOLYSI 1 (1-3); INDEX ICTERIC 1 (1-4); INDEX LIPEMIC 1 (1-3); POTASSIUM 3.3 mEq/L (3.5-5.1); PROTHROMBIN TIME 10.9 sec (9.6-11.0); SODIUM 135 mEq/L (136-145)
[2023-08-28] MEDS ORDERED: LACTULOSE 20G/30ML UDC PO SCH (11:15)
[2023-08-28] MEDS ORDERED: KETOROLAC 15MG/ML VIAL IV SCH (11:15)
[2023-08-28 11:25] LABS: ALANINE AMINOTRANSFERASE 25 IU/L (13-61); ALBUMIN 3.9 g/dL (3.4-5.0); ASPARTATE AMINOTRANSFERASE 33 IU/L (15-37); BILIRUBIN TOTAL 0.4 mg/dL (0.1-1.0); CALCIUM 8.4 mg/dL (8.5-10.1); CARBON DIOXIDE 28 mEq/L (21-32); CREATININE 0.8 mg/dL (0.6-1.3); GLUCOSE 92 mg/dL (70-105); PROTEIN TOTAL 8.2 g/dL (6.0-8.3); UREA NITROGEN BLOOD 11 mg/dL (7-21)
[2023-08-28] MEDS ORDERED: KETOROLAC 30MG/ML VIAL IV SCH (12:00)
[2023-08-28 12:13] VITALS: BP 108/66; PULSE 117; RESP 19
[2023-08-28] MEDS ORDERED: SENN-257 PO (12:51)
== END 2023-08-28 13:42 | disposition home or self-care (01) ==
LOC: ER 10:16 → CANBEDREQ 13:22 → ER 13:42
DX: K59.00 Constipation, unspecified (principal); J45.909 Unspecified asthma, uncomplicated; J44.1 Chronic obstructive pulmonary disease with (acute) exacerbation; E11.9 Type 2 diabetes mellitus without complications; I10 Essential (primary) hypertension
CPT/HCPCS: 99285; 74176; 96374; 80053; 83690; 85025; 85610; 36415; J1885

== ENCOUNTER 2024-02-19 18:32 | Emergency (ER) | payer MEDICARE, OTHER ==
[~2024-02-19] VITALS: Ht 162.6 cm; Wt 48.0 kg
[~2024-02-19 18:32] MED LIST changes: +SENN-257 PO
[2024-02-19 19:54] LABS: DIFFERENTIAL COMMENT 1; HEMATOCRIT. 40.3 % (36.0-48.0); HEMOGLOBIN. 13.4 g/dL (12.0-16.0); MEAN CORPUSCULAR HEMOGLOBIN 32.2 pg (28.0-32.0); MEAN CORPUSCULAR HGB CONC 33.3 g/dL (31.0-37.0); MEAN CORPUSCULAR VOLUME 96.7 fL (81.0-99.0); MEAN PLATELET VOLUME 6.8 fl (7.4-10.4); PLATELET 385 x1000/uL (130-400); RED BLOOD CELL COUNT 4.17 mill/uL (4.2-5.4); RED CELL DISTRIBUTION WIDTH 14.6 % (11.6-14.6); WHITE BLOOD COUNT 19.1 x1000/uL (4.5-11.0)
[2024-02-19 20:07] VITALS: O2SAT 98
[2024-02-19 20:11] LABS: ALANINE AMINOTRANSFERASE 33 IU/L (10-49); ALBUMIN 5.5 g/dL (3.2-4.8); ASPARTATE AMINOTRANSFERASE 41 IU/L (<34); BILIRUBIN TOTAL 0.5 mg/dL (0.1-1.0); CALCIUM 9.9 mg/dL (8.7-10.4); CARBON DIOXIDE 28 mEq/L (21-32); CHLORIDE 101 mEq/L (98-107); GLUCOSE 113 mg/dL (70-105); POTASSIUM 3.5 mEq/L (3.5-5.1); PROTEIN TOTAL 9.2 g/dL (6.0-8.3); SODIUM 138 mEq/L (136-145); UREA NITROGEN BLOOD 15 mg/dL (9-23)
[2024-02-19 20:15] LABS: PLATELET ESTIMATE NORMAL
[2024-02-19 21:35] LABS: ETHANOL BLOOD < 10 mg/dL (<10)
[2024-02-19] MEDS ORDERED: SODIUM CHLORIDE 0.9% 1,000 ML IV ONE (21:45)
[2024-02-19 21:48] VITALS: BP 135/80; PULSE 101; RESP 18; TEMP 98.6
== END 2024-02-19 21:50 | disposition left against medical advice (07) ==
LOC: ER 18:37
DX: K59.00 Constipation, unspecified (principal); J44.1 Chronic obstructive pulmonary disease with (acute) exacerbation; E11.9 Type 2 diabetes mellitus without complications; I10 Essential (primary) hypertension; J45.909 Unspecified asthma, uncomplicated; Z88.6 Allergy status to analgesic agent; Z88.8 Allergy status to other drugs, medicaments and biological substances; Z79.899 Other long term (current) drug therapy; Z79.82 Long term (current) use of aspirin
CPT/HCPCS: 80053; 80320; 83690; 85025; 36415; 99283; J7030; G0480

== ENCOUNTER 2024-06-07 03:34 | Emergency (ER) | payer MEDICARE, OTHER ==
[~2024-06-07] VITALS: Ht 162.6 cm; Wt 50.0 kg
[~2024-06-07 03:34] MED LIST changes: -ALBU18HF2 IH; +ALBU18HF2 PO; -AMLO10TA80 PO; -BENZ100C86 PO; -DIPH50CA38 PO; -HYDR25TA PO; +MAGN400C MT; +METF-414 PO; -METF-818 PO; +METO25TA6 PO; +OLAN5TAB74 PO; +POTA-204 MT; -QUET25TA36 PO; -SENN-257 PO; -TOPUD MT
[2024-06-07 03:41] VITALS: O2SAT 100
[2024-06-07 05:30] LABS: HEMATOCRIT. 38.9 % (36.0-48.0); HEMOGLOBIN. 13.3 g/dL (12.0-16.0); MEAN CORPUSCULAR HEMOGLOBIN 32.5 pg (28.0-32.0); MEAN CORPUSCULAR HGB CONC 34.2 g/dL (31.0-37.0); MEAN CORPUSCULAR VOLUME 94.9 fL (81.0-99.0); MEAN PLATELET VOLUME 6.6 fl (7.4-10.4); PLATELET 324 x1000/uL (130-400); RED CELL DISTRIBUTION WIDTH 13.9 % (11.6-14.6); WHITE BLOOD COUNT 5.4 x1000/uL (4.5-11.0)
[2024-06-07 05:36] LABS: CHLORIDE 92 mEq/L (98-107); SODIUM 134 mEq/L (136-145)
[2024-06-07 05:37] LABS: CARBON DIOXIDE 34 mEq/L (21-32)
[2024-06-07 05:38] LABS: CALCIUM 7.8 mg/dL (8.7-10.4)
[2024-06-07 05:39] LABS: DIFFERENTIAL COMMENT 1
[2024-06-07 05:42] LABS: CREATININE 0.7 mg/dL (0.6-1.0); GLUCOSE 129 mg/dL (70-105)
[2024-06-07 05:44] LABS: TROPONIN I HIGH SENSITIVITY 4 ng/L (3.0-34)
[2024-06-07 05:49] LABS: UREA NITROGEN BLOOD < 5 mg/dL (9-23)
[2024-06-07 05:51] LABS: POTASSIUM 2.7 mEq/L (3.5-5.1)
[2024-06-07 06:07] LABS: PLATELET ESTIMATE NORMAL
[2024-06-07] MEDS: POTASSIUM CHLORIDE 20MEQ/PACKET PO ONE (06:30)
[2024-06-07] MEDS ORDERED: IPRATROPIUM/ALBUTEROL 0.5-3(2.5)MG/3ML NEB HHN PRN (13:00)
[2024-06-07] MEDS ORDERED: CLONIDINE 0.1MG TABLET PO PRN (13:00)
[2024-06-07] MEDS ORDERED: ONDANSETRON HCL 4MG/2ML INJ IV PRN (13:00)
[2024-06-07] MEDS ORDERED: DIPHENHYDRAMINE 50MG/ML VIAL IV PRN (13:00)
[2024-06-07] MEDS ORDERED: ACETAMINOPHEN 325MG TABLET PO PRN (13:00)
[2024-06-07 19:49] VITALS: BP 131/74; PULSE 117; RESP 18; TEMP 98.5
[2024-06-07] MEDS ORDERED: AMLODIPINE 5MG TABLET PO SCH (21:00)
== END 2024-06-07 21:34 | disposition left against medical advice (07) ==
LOC: ER 03:34 → EDBEDREQ 07:05 → EDBEDREQTM 07:05 → ER 21:34
DX: R55 Syncope and collapse (principal); R53.1 Weakness; J44.9 Chronic obstructive pulmonary disease, unspecified; E11.9 Type 2 diabetes mellitus without complications; I10 Essential (primary) hypertension; Z85.9 Personal history of malignant neoplasm, unspecified; Z79.899 Other long term (current) drug therapy
CPT/HCPCS: 80048; 83880; 85025; 84484; 36415; 71045; 93005; 99291; Z7610 ×2

== ENCOUNTER 2024-06-28 16:58 | Emergency (ER) | payer MEDICARE, OTHER ==
[~2024-06-28] VITALS: Ht 162.6 cm; Wt 55.0 kg
[2024-06-28 17:01] VITALS: O2SAT 97
[2024-06-28 19:03] LABS: HEMATOCRIT. 43.5 % (36.0-48.0); HEMOGLOBIN. 14.5 g/dL (12.0-16.0); MEAN CORPUSCULAR HEMOGLOBIN 32.2 pg (28.0-32.0); MEAN CORPUSCULAR HGB CONC 33.3 g/dL (31.0-37.0); MEAN CORPUSCULAR VOLUME 96.8 fL (81.0-99.0); MEAN PLATELET VOLUME 6.9 fl (7.4-10.4); PLATELET 316 x1000/uL (130-400); RED BLOOD CELL COUNT 4.49 mill/uL (4.2-5.4); RED CELL DISTRIBUTION WIDTH 13.1 % (11.6-14.6); WHITE BLOOD COUNT 6.3 x1000/uL (4.5-11.0)
[2024-06-28 19:06] LABS: DIFFERENTIAL COMMENT 1
[2024-06-28 19:14] LABS: CHLORIDE 90 mEq/L (98-107); POTASSIUM 2.9 mEq/L (3.5-5.1); SODIUM 132 mEq/L (136-145)
[2024-06-28 19:15] LABS: CARBON DIOXIDE 34 mEq/L (21-32)
[2024-06-28 19:16] LABS: CALCIUM 8.2 mg/dL (8.7-10.4)
[2024-06-28 19:20] LABS: CREATININE 0.8 mg/dL (0.6-1.0)
[2024-06-28 19:21] LABS: GLUCOSE 145 mg/dL (70-105)
[2024-06-28 19:22] LABS: LACTIC ACID 2.6 mmol/L (0.4-2.0); UREA NITROGEN BLOOD < 5 mg/dL (9-23)
[2024-06-28 19:23] LABS: TROPONIN I HIGH SENSITIVITY 8 ng/L (3.0-34)
[2024-06-28 19:32] LABS: PLATELET ESTIMATE NORMAL
[2024-06-28 20:27] LABS: TROPONIN I HIGH SENSITIVITY 8 ng/L (3.0-34)
[2024-06-28] MEDS ORDERED: POTA-205 MT (21:52)
[2024-06-28] MEDS ORDERED: MAGN400C MT (21:52)
[2024-06-28] MEDS: POTASSIUM CHLORIDE 20MEQ/PACKET PO ONE (22:15)
[2024-06-28] MEDS: SODIUM CHLORIDE 0.9% 1,000 ML IV ONE (22:15)
[2024-06-28 22:19] LABS: CLARITY URINE CLEAR (CLEAR); COLOR URINE YELLOW (YELLOW); GLUCOSE URINE NEGATIVE (NEGATIVE); KETONES URINE NEGATIVE (NEGATIVE); LEUKOCYTE ESTERASE URINE 1+ (NEGATIVE); NITRITE URINE NEGATIVE (NEGATIVE); OCCULT BLOOD URINE NEGATIVE (NEGATIVE); PH URINE 7.5 (4.5-8.0); PROTEIN URINE NEGATIVE (NEGATIVE); SPECIFIC GRAVITY URINE 1.006 (1.005-1.030)
[2024-06-28 22:31] LABS: BACTERIA URINE 1+; RBC URINE 0-2 /hpf (0-2); SQUAMOUS EPITHELIAL CELL URINE 1+ /lpf (RARE/1+)
[2024-06-28 23:37] VITALS: BP 120/91; PULSE 91; RESP 20; TEMP 98.3
== END 2024-06-28 23:42 | disposition home or self-care (01) ==
LOC: ER 17:04
DX: R42 Dizziness and giddiness (principal); R53.1 Weakness; J44.9 Chronic obstructive pulmonary disease, unspecified; E11.9 Type 2 diabetes mellitus without complications; I10 Essential (primary) hypertension; Z85.9 Personal history of malignant neoplasm, unspecified; Z79.899 Other long term (current) drug therapy
CPT/HCPCS: 99285; 96360; 71045; 80048; 81003; 83880; 83605; 85025; 84484; 36415; 93005; J7030